=== PATIENT | male | born 1960 | race Caucasian/White ===

== ENCOUNTER → 2022-07-03 | Outpatient (CLI) | payer BC ==
[~2022-07-03] MED LIST: ASPI-523 PO; ATOR1TAB21 PO; FOLI1TAB11 PO; KP F1200 PO; MELO15TA28 PO
== END ==
LOC: M CARPUL 15:21
PROVIDERS: ATTEND Internal Medicine Cardiovascular Disease
DX: R01.1 Cardiac murmur, unspecified (principal)

== ENCOUNTER 2022-07-07 12:19 | Day surgery (SDC) | payer BC, OTHER ==
[~2022-07-07] VITALS: Ht 182.9 cm; Wt 69.8 kg
[~2022-07-07 12:19] MED LIST changes: +ceFAZolin SOD 2 GM in IV 1 EA IV ONE
[2022-07-07] MEDS ORDERED: LIDOCAINE 1% SDV 30ML VIAL As Ordered ONE (13:34)
[2022-07-07] MEDS ORDERED: MIDAZOLAM INJ 2MG/2ML VIAL (J2250 PER 1MG) As Ordered ONE (13:36)
[2022-07-07] MEDS ORDERED: fentaNYL 100 MCG/2 ML INJECTION As Ordered ONE (13:36)
[2022-07-07 14:20] VITALS: BP 116/71
== END 2022-07-07 15:20 | disposition home or self-care (01) ==
LOC: M SDC 12:19
PROVIDERS: ATTEND Internal Medicine Cardiovascular Disease
DX: R55 Syncope and collapse (principal); I44.0 Atrioventricular block, first degree; Z79.899 Other long term (current) drug therapy; Z79.82 Long term (current) use of aspirin
CPT/HCPCS: 33285; 87635; C1764; J0690; J2250; J3010

== ENCOUNTER → 2022-08-13 | Outpatient (CLI) | payer BC, OTHER ==
[~2022-08-13] MED LIST changes: +THIA100TA PO; -ceFAZolin SOD 2 GM in IV 1 EA IV ONE
== END ==
LOC: M LABSMTC 09:49
PROVIDERS: ATTEND Anesthesiology
DX: Z01.818 Encounter for other preprocedural examination (principal); Z11.52 Encounter for screening for COVID-19

== ENCOUNTER 2022-08-15 13:55 | Observation (INO) | payer BC, OTHER ==
[~2022-08-15] VITALS: Ht 182.9 cm; Wt 83.4 kg
[2022-08-15] MEDS ORDERED: LR 1,000 ML IV SCH ×2 (14:00→18:40)
[2022-08-15] MEDS ORDERED: propofoL 200 MG/20 ML VIAL As Ordered ONE ×2 (16:58→18:02)
[2022-08-15] MEDS ORDERED: fentaNYL 100 MCG/2 ML INJECTION As Ordered ONE (16:58)
[2022-08-15] MEDS ORDERED: LIDOCAINE 2% 100MG/5ML SDV (FOR ANES.) As Ordered ONE (16:58)
[2022-08-15] MEDS ORDERED: MIDAZOLAM INJ 2MG/2ML VIAL (J2250 PER 1MG) As Ordered ONE (16:59)
[2022-08-15] MEDS ORDERED: LIDOCAINE 1% SDV 30ML VIAL As Ordered ONE (17:08)
[2022-08-15] MEDS ORDERED: ceFAZolin 2 GM/D5W 50 ML IV BAG (J0690 PER 500MG) As Ordered ONE (17:37)
[2022-08-15] MEDS ORDERED: ONDANSETRON 4MG 2ML VIAL IV PRN (18:40)
[2022-08-15] MEDS ORDERED: oxyCODONE 5MG TAB PO PRN (18:40)
[2022-08-15] MEDS ORDERED: ACETAMINOPHEN TAB 650MG DOSE (2X325MG) PO PRN (19:30)
[2022-08-15] MEDS ORDERED: traMADol 50 MG TAB PO PRN (19:30)
[2022-08-15 20:00] VITALS: BP 159/90
[2022-08-15 20:30] VITALS: BP 142/79
[2022-08-15 21:00] VITALS: BP 143/87
[2022-08-15] MEDS ORDERED: ATORVASTATIN 20 MG TAB PO SCH (21:00)
[2022-08-15 22:00] VITALS: BP 139/86
[2022-08-15 23:00] VITALS: BP 149/84
[2022-08-16] VITALS: BP 142/82
[2022-08-16 01:00] VITALS: BP 144/82
[2022-08-16] MEDS: ceFAZolin SOD 1 GM in D5W MINI-BAG PLUS 50 ML IV SCH ×2 (01:30→08:46)
[2022-08-16 04:00] VITALS: BP 143/84
[2022-08-16 08:19] VITALS: BP 136/83
[2022-08-16 12:00] VITALS: BP 119/79
== END 2022-08-16 12:55 | disposition home or self-care (01) ==
LOC: M SDC 13:55 → M ED INP 13:56 → M SDC 18:56 → M ED INP 18:57 → M PCU 19:57
PROVIDERS: ADMIT Internal Medicine Cardiovascular Disease; ATTEND Internal Medicine Cardiovascular Disease
DX: I49.5 Sick sinus syndrome (principal); R55 Syncope and collapse; I44.0 Atrioventricular block, first degree; E78.00 Pure hypercholesterolemia, unspecified; Z79.899 Other long term (current) drug therapy; Z79.82 Long term (current) use of aspirin
CPT/HCPCS: 33208; 33286; 71045; 71046; 76000; 93005; 96374; 96376; C1785; C1898; J0690; J2250; J3010

== ENCOUNTER 2023-05-09 12:27 | Day surgery (SDC) | payer MEDICARE, BC, OTHER ==
[~2023-05-09] VITALS: Ht 182.9 cm; Wt 79.7 kg
[~2023-05-09 12:27] MED LIST changes: +ACET-1349 PO; +ARTH650T17 PO; +NS 1,000 ML IV ONE; +ZYRT10TA12 PO
[2023-05-09 14:08] VITALS: TEMP 97.4
[2023-05-09 14:28] VITALS: BP 118/92; O2SAT 99
== END 2023-05-09 14:34 | disposition home or self-care (01) ==
LOC: M OPP 12:27
PROVIDERS: ATTEND Internal Medicine Gastroenterology
DX: R19.5 Other fecal abnormalities (principal); K63.5 Polyp of colon; D12.6 Benign neoplasm of colon, unspecified; K64.0 First degree hemorrhoids; K57.30 Diverticulosis of large intestine without perforation or abscess without bleeding; Z87.891 Personal history of nicotine dependence; Z79.1 Long term (current) use of non-steroidal anti-inflammatories (NSAID); Z79.899 Other long term (current) drug therapy